=== PATIENT | female | born 1990 ===

== ENCOUNTER 2024-04-19 18:40 | Inpatient (IN) ==
[2024-04-19 19:45] LABS: Urine Appearance Extra Turbid; Urine Bilirubin Negative (Negative); Urine Blood 3+ (Negative); Urine Color Yellow; Urine Glucose Negative (Negative); Urine Ketones 2+ (Negative); Urine Nitrite 2+ (Negative); Urine Protein 1+ (>=30 mg/dL) (Negative); Urine Specific Gravity 1.031 (1.002-1.030); Urine Urobilinogen Negative (Negative); Urine pH 5.5 (5.0-8.0)
[2024-04-19 19:50] LABS: Urine Bacteria 2+ /HPF (Absent); Urine Red Blood Cell 3+(>10/hpf) /HPF (0-Trace); Urine Squamous Epithelial Cell Present /HPF (Absent); Urine White Blood Cell 3+(>20/hpf) /HPF (0-Trace)
[2024-04-19 20:43] LABS: Urine Benzodiazepine Screen None Detected (None Detect); Urine Cannabinoids Screen Presumptive Positive (None Detect); Urine Opiates Screen None Detected (None Detect)
[2024-04-21 08:40] LABS: ABS Basophils 0.1 10^3/uL (0.0-0.1); ABS Eosinophils 0.3 10^3/uL (0.0-0.5); ABS Lymphocytes 1.4 10^3/uL (1.0-4.8); ABS Monocytes 0.4 10^3/uL (0.0-0.9); ABS Neutrophils 3.9 10^3/uL (1.5-7.6); ABS Nucleated RBC 0.01 10^3/ul; Eosinophil % 5.4 %; Hematocrit 39.8 % (35-45); Hemoglobin 13.9 g/dL (11.5-14.3); Lymphocyte % 23.1 %; Mean Corpuscular Hemoglobin 30.7 pg (27-33); Mean Corpuscular Hgb Conc 35.1 g/dL (31-36); Mean Corpuscular Volume 87.7 fL (80-97); Mean Platelet Volume 7.4 fL (7.5-11.2); Nucleated Red Blood Cells % 0.1 %/100WBC (0.0-0.8); Platelet Count 340 10^3/uL (150-450); Red Blood Count 4.54 10^6/uL (3.63-4.92); Red Cell Distribution Width 12.8 % (12-17); White Blood Count 6.1 10^3/uL (3.8-11.8)
[2024-04-21 09:17] LABS: HCG Pregnancy < 0.60 mIU/mL
[2024-04-21 09:22] LABS: ALT 8 U/L (7-52); AST 10 U/L (13-39); Albumin 4.6 g/dL (3.2-5.2); Albumin/Globulin Ratio 1.7 (1-3); Alkaline Phosphatase 80 U/L (35-149); Anion Gap 16 mmol/L (2-16); Blood Urea Nitrogen 15 mg/dL (6-24); CO2 Carbon Dioxide 21 mmol/L (22-32); Calcium 9.4 mg/dL (8.6-10.3); Chloride 99 mmol/L (101-111); Cholesterol 196 mg/dL; Creatinine, Serum 0.65 mg/dL (0.51-0.95); Globulin 2.7 g/dL (2-4); Glucose 77 mg/dL (70-100); HDL Cholesterol 41.5 mg/dL; LDL Cholesterol 133 mg/dL; Potassium 3.9 mmol/L (3.5-5.0); Sodium 136 mmol/L (135-145); Total Bilirubin 1.2 mg/dL (0.2-1.0); Total Protein 7.3 g/dL (6.4-8.9); Triglycerides 106 mg/dL; eGFR CKD-EPI 118.4 (>60)
[2024-04-24 10:41] VITALS: BP 116/80
== END 2024-04-24 13:09 | disposition home or self-care (01) | DRG 751 ==
LOC: ED 18:40 → EDHOLD 04-20 11:24 → BSU 04-20 11:24
PROVIDERS: ADMIT Psychiatry & Neurology Psychiatry; ATTEND Student in an Organized Health Care Education/Training Program